=== PATIENT | female | born 1990 | race Two or more races ===

== ENCOUNTER 2019-10-13 21:56 | Emergency (ER) | payer SELFPAY ==
[~2019-10-13] VITALS: Ht 165.1 cm; Wt 80.5 kg
[2019-10-14 01:51] VITALS: BP 119/73
== END 2019-10-14 03:13 | disposition home or self-care (01) ==
LOC: ER 21:57
DX: S01.511A Laceration without foreign body of lip, initial encounter (principal); W18.09XA Striking against other object with subsequent fall, initial encounter; Y93.89 Activity, other specified; Y92.89 Other specified places as the place of occurrence of the external cause; Y99.8 Other external cause status
CPT/HCPCS: 12011